=== PATIENT | male | born 1980 | race Hispanic/Latino ===

== ENCOUNTER 2017-07-11 10:02 | Emergency (ER) | payer SELFPAY ==
[2017-07-11] MEDS ORDERED: Acetaminophen 500 MG TAB ONE (10:47)
[2017-07-11] MEDS ORDERED: Amlodipine 5 MG TAB ONE (10:47)
[2017-07-11] MEDS ORDERED: Ketorolac Tromethamine 60 MG/2 ML VIAL ONE (10:47)
== END 2017-07-11 11:13 | disposition home or self-care (01) ==
LOC: MADERS 10:02
DX: I10 Essential (primary) hypertension (principal); J45.909 Unspecified asthma, uncomplicated; I45.6 Pre-excitation syndrome; F17.210 Nicotine dependence, cigarettes, uncomplicated; Z79.899 Other long term (current) drug therapy
CPT/HCPCS: 96372; J1885

== ENCOUNTER 2021-02-12 23:34 | Emergency (ER) | payer OTHER, SELFPAY ==
[2021-02-12] MEDS ORDERED: Acetaminophen 500 MG TAB ONE (23:54)
== END 2021-02-13 00:24 | disposition home or self-care (01) ==
LOC: MADERS 23:34
DX: S60.222A Contusion of left hand, initial encounter (principal); S20.219A Contusion of unspecified front wall of thorax, initial encounter; R07.89 Other chest pain; J45.909 Unspecified asthma, uncomplicated; E11.9 Type 2 diabetes mellitus without complications; I45.6 Pre-excitation syndrome; I10 Essential (primary) hypertension; I49.9 Cardiac arrhythmia, unspecified; F17.210 Nicotine dependence, cigarettes, uncomplicated; X58.XXXA Exposure to other specified factors, initial encounter
CPT/HCPCS: 36416; 93005; J7620

== ENCOUNTER 2021-02-13 07:19 | Emergency (ER) | payer SELFPAY ==
[2021-02-13] MEDS ORDERED: predniSONE 20 MG TAB ONE (07:28)
== END 2021-02-13 07:55 | disposition home or self-care (01) ==
LOC: MADERS 07:19
DX: J45.901 Unspecified asthma with (acute) exacerbation (principal); E11.9 Type 2 diabetes mellitus without complications; I10 Essential (primary) hypertension
CPT/HCPCS: 99284; J7512; J7620

== ENCOUNTER 2021-04-08 23:08 | Emergency (ER) | payer OTHER, SELFPAY ==
[2021-04-08 23:58] LABS: Bilirubin Negative (Negative); Blood, Urine Large (Negative); Glucose, Urine (Dipstick) >=1000 mg/dL (Negative); Ketone, Urine Trace mg/dL (Negative); Leukocyte Negative (Negative); Nitrite Negative (Negative); Protein, Urine (Dipstick) 100 mg/dL (Neg-Trace); Specific Gravity, Urine 1.025 (1.005-1.030)
[2021-04-09 00:01] LABS: Clarity Turbid (Clear)
[2021-04-09 00:02] LABS: RBC/HPF Greater than 50 HPF (0-3); Squamous Epithelial 0-3 HPF (0-3); WBC/HPF 0-3 HPF (0-3)
[2021-04-09 00:18] LABS: #Basophils 0.1 thou/uL (0.0-0.2); #Eosinphils 0.2 thou/uL (0.0-0.7); #Lymphocytes 3.1 thou/uL (1.20-3.40); #Monocytes 0.8 thou/uL (0.11-0.59); #Neutrophils 8.5 thou/uL (1.40-6.50); %Basophils 0.9 % (0.0-1.0); %Eosinophils 1.9 % (0.0-10.0); %Lymphocytes 24.3 % (21.0-51.0); %Monocytes 6.1 % (0.0-10.0); %Neutrophils 66.7 % (42.0-75.0); Hemoglobin 15.2 g/dL (14.0-18.0); Mean Corpuscular HGB CONC 32.7 g/dL (32.0-36.0); Mean Corpuscular Hemoglobin 30.6 pg (27.0-31.0); Mean Corpuscular Volume 93.8 fL (78.0-98.0); Platelet Count 428 thou/uL (130-400); RBC Distribution Width 11.8 % (11.5-14.5); Red Blood Cell (RBC) Count 4.98 mill/uL (4.70-6.10); White Blood Cell (WBC) Count 12.7 thou/uL (4.8-10.8)
[2021-04-09 00:36] LABS: ALT (SGPT) 23 U/L (8-55); AST (SGOT) 12 U/L (5-34); Albumin 4.4 g/dL (3.5-5.0); Alkaline Phosphatase 106 U/L (40-110); Anion Gap 13 mmol/L (10-20); BUN (Urea Nitrogen) 18 mg/dL (8.9-20.6); Bilirubin, Total 0.3 mg/dL (0.2-1.2); Calc. Creatinine Clearance 0 mL/min (70-130); Calcium 9.8 mg/dL (7.8-10.44); Carbon Dioxide 26 mmol/L (22-29); Chloride 105 mmol/L (98-107); Globulin 3.5 g/dL (2.4-3.5); Glucose 258 mg/dL (70-105); Lipase 31 U/L (8-78); Potassium 4.2 mmol/L (3.5-5.1); Protein, Total 7.9 g/dL (6.0-8.3); Sodium 140 mmol/L (136-145)
[2021-04-09] MEDS ORDERED: Acetaminophen 500 MG TAB ONE (00:51)
[2021-04-09] MEDS ORDERED: Amlodipine 5 MG TAB ONE (00:51)
== END 2021-04-09 01:03 ==
LOC: MADERS 23:08
DX: R31.9 Hematuria, unspecified (principal); R10.9 Unspecified abdominal pain; I10 Essential (primary) hypertension; E11.9 Type 2 diabetes mellitus without complications; F17.210 Nicotine dependence, cigarettes, uncomplicated
CPT/HCPCS: 36415; 74176; 80053; 81003; 81015; 83690; 83735; 85025